=== PATIENT | female | born 2000 | race Caucasian/White ===

== ENCOUNTER 2020-12-08 01:23 | Emergency (ER) | payer OTHER ==
[~2020-12-08] VITALS: Ht 157.5 cm; Wt 78.9 kg
[2020-12-08 01:31] VITALS: BP 123/60
--- NOTE | 2020-12-08 01:31 | NUR ---
PATIENT 20 Y/O FEMALE BIB SELF FOR C/O R SIDED PELVIC PAIN X 5 DAYS. PATIENT STATES PAIN 10/10, INTERMITTENT SHARP PAIN. PATIENT STATES OTC MEDICATIONS PROVIDE PAIN RELIEF, BUT PAIN COMES BACK. PATIENT DENIES ANY PAINFUL URINATION OR ABNORMAL DISCHARGE. PATIENT DENIES ANY HX OF FIBROIDS/CYSTS. PATIENT DENIES ANY VAGINAL BLEEDING AT THIS TIME. SEE COMPLETE ASSESSMENT FOR FUTHER DETAILS. MEDHX: DENIES NKA
--- NOTE | 2020-12-08 01:36 | NUR ---
To ED bed 07
--- NOTE | 2020-12-08 01:42 | NUR ---
Dr. Buckley with pt for MSE
[2020-12-08] MEDS ORDERED: NACL 0.9% 1,000 ML IV SCH (01:50)
[2020-12-08] MEDS ORDERED: ONDANSETRON 4 MG/2 ML VIAL IVP ONE (01:50)
[2020-12-08] MEDS ORDERED: MORPHINE SULFATE 4 MG/ML SYR IVP ONE (01:50)
[2020-12-08 02:02] LABS: BASOPHILS # (AUTO) 0.1 K/uL (0.00-0.22); BASOPHILS % (AUTO) 0.4 % (0.0-2.0); EOSINOPHILS # (AUTO) 0.3 K/uL (0-0.4); EOSINOPHILS % (AUTO) 2.4 % (0.0-4.0); HEMATOCRIT 37.2 % (36-48); HEMOGLOBIN 12.3 g/dL (12.0-16.0); MEAN CORPUSCULAR HEMOGLOBIN 29 pg (27-31); MEAN CORPUSCULAR HGB CONC 33 g/dL (33-37); MEAN CORPUSCULAR VOLUME 87.7 fL (80-94); MONOCYTES % (AUTO) 7.3 % (1.7-9.3); NEUTROPHILS # (AUTO) 9.9 K/uL (1.8-7.7); NEUTROPHILS % (AUTO) 74.9 % (42.2-75.2); PLATELET COUNT (AUTO) 400 K/uL (140-450); RED BLOOD CELL COUNT(AUTO) 4.24 MIL/uL (4.20-5.40); RED CELL DISTRIBUTION WIDTH 13.7 % (11.6-13.7); WHITE BLOOD COUNT (AUTO) 13.2 K/uL (4.8-10.8)
--- NOTE | 2020-12-08 02:09 | NUR ---
PT REPORTS BEGINNING MENSTRUAL CYCLE AT THIS TIME.
--- NOTE | 2020-12-08 02:10 | NUR ---
URINE SAMPLE COLLECTED AND HAND GIVEN TO FREDDIE LOVE TECH.
[2020-12-08 02:12] LABS: ANION GAP 16.5 (8-16); CARBON DIOXIDE 27.4 mmol/L (21-32); CREATININE 0.9 mg/dL (0.6-1.3); POTASSIUM 3.9 mmol/L (3.5-5.1)
[2020-12-08 02:19] LABS: APPEARANCE,URINE CLOUDY (CLEAR); BILIRUBIN,URINE 1+ (NEGATIVE); BLOOD, URINE 3+ (NEGATIVE); COLOR,URINE YELLOW (YELLOW); LEUKOCYTE ESTERASE ,URINE NEGATIVE (NEGATIVE); NITRITE, URINE NEGATIVE (NEGATIVE); UGLUCOSE NEGATIVE (NEGATIVE)
[2020-12-08 02:23] LABS: ALBUMIN 3.9 g/dL (3.4-5.0); TOTAL BILIRUBIN 0.3 mg/dL (0.0-1.0)
--- NOTE | 2020-12-08 02:23 | NUR ---
PT TAKEN TO CT VIA W.C.
[2020-12-08 02:25] LABS: RBC,URINE TOO NUMEROUS TO COUN /HPF (0-5)
[2020-12-08 02:26] LABS: WBC,URINE 0-5 /HPF (0-5)
--- NOTE | 2020-12-08 02:34 | NUR ---
PT RETURNED FROM CT VIA W.C.
--- NOTE | 2020-12-08 03:10 | NUR ---
PT DENIES PAIN OR DISCOMFORT AT THIS TIME. PATIENT PROVIDED ADDITIONAL BLANKET AND REPOSITIONED FOR COMFORT. MOTHER REMAINS AT BEDSIDE.
--- NOTE | 2020-12-08 04:25 | NUR ---
ULTRASOUND AT BEDSIDE.
[2020-12-08] MEDS ORDERED: KETOROLAC 30 MG/ML VIAL IVP ONE (04:35)
[2020-12-08] MEDS ORDERED: cefTRIAXone 1,000 MG VIAL ONE (04:39)
[2020-12-08] MEDS ORDERED: ONDA-24 SL (04:47)
[2020-12-08] MEDS ORDERED: CEPH-588 PO (04:47)
[2020-12-08] MEDS ORDERED: NAPR-1003 PO (04:47)
--- NOTE | 2020-12-08 04:59 | NUR ---
ERMD AT BEDSIDE DISCUSSING RESULTS.
[2020-12-08 05:27] VITALS: BP 101/59
--- NOTE | 2020-12-08 05:27 | NUR ---
Patient discharged with v/s stable. Written and verbal after care instructions given and explained. Patient alert, oriented and verbalized understanding of instructions. Ambulatory with steady gait. All questions addressed prior to discharge. ID band removed. Patient advised to follow up with PMD. Rx of KEFLEX, NAPROXEN, ZOFRAN ODT given. Patient educated on indication of medication including possible reaction and side effects. Opportunity to ask questions provided and answered.
== END 2020-12-08 05:27 | disposition home or self-care (01) ==
LOC: MED 01:23
DX: N83.201 Unspecified ovarian cyst, right side (principal)
CPT/HCPCS: 36415; 74176; 76856; 80053; 81001; 84703; 85025; 87086; 96361; 96365; 96375; 99285; J0696; J1885; J2270; J2405; J7030

== ENCOUNTER 2021-10-02 21:50 | Emergency (ER) | payer OTHER ==
[~2021-10-02] VITALS: Ht 154.9 cm; Wt 84.4 kg
[~2021-10-02 21:50] MED LIST: CEPH-588 PO; NAPR-1003 PO; ONDA-188 SL
--- NOTE | 2021-10-02 22:11 | NUR ---
PATIENT TO LOBBY WITH URINE CUP FOR URINE COLLECTION
[2021-10-02 22:14] VITALS: BP 127/66
[2021-10-02] MEDS ORDERED: ONDANSETRON 4 MG ODT PO ONE (22:15)
[2021-10-02] MEDS ORDERED: ONDANSETRON 4 MG ODT ONE (23:43)
--- NOTE | 2021-10-03 01:24 | NUR ---
PT GIVEN BONIFACIO CRACKJOSE.
--- NOTE | 2021-10-03 01:26 | NUR ---
Per pt, has been taken Semaglutide prescribed by PCP.
[2021-10-03] MEDS ORDERED: KETOROLAC 60 MG/2 ML VIAL IM ONE (02:30)
[2021-10-03] MEDS ORDERED: ONDA8TAB87 PO (02:37)
[2021-10-03] MEDS ORDERED: IBUP-2213 PO (02:37)
[2021-10-03] MEDS ORDERED: LOPE-143 PO (02:37)
[2021-10-03] MEDS ORDERED: CIPR500T4 PO (02:37)
[2021-10-03 02:56] VITALS: BP 118/75
== END 2021-10-03 02:56 | disposition home or self-care (01) ==
LOC: MED 21:50
DX: R11.2 Nausea with vomiting, unspecified (principal); R19.7 Diarrhea, unspecified; R10.13 Epigastric pain; Z79.899 Other long term (current) drug therapy; Z79.1 Long term (current) use of non-steroidal anti-inflammatories (NSAID); Z79.2 Long term (current) use of antibiotics
CPT/HCPCS: 81002; 81025; 96372; 99283; J1885; Q0162

== ENCOUNTER 2023-03-10 19:12 | Emergency (ER) | payer OTHER ==
[~2023-03-10] VITALS: Ht 154.9 cm; Wt 81.6 kg
[~2023-03-10 19:12] MED LIST changes: +CIPR500T4 PO; +IBUP-2213 PO; +LOPE-143 PO; +ONDA8TAB87 PO
[2023-03-10 19:25] VITALS: BP 110/70; PULSE 80; RESP 17; TEMP 97.6; O2SAT 98
[2023-03-10] MEDS ORDERED: IBUPROFEN 600 MG TAB PO ONE (20:25)
[2023-03-10 21:20] LABS: APPEARANCE,URINE SL CLOUDY (CLEAR); BILIRUBIN,URINE NEGATIVE (NEGATIVE); BLOOD, URINE NEGATIVE (NEGATIVE); COLOR,URINE YELLOW (YELLOW); LEUKOCYTE ESTERASE ,URINE TRACE (NEGATIVE); NITRITE, URINE NEGATIVE (NEGATIVE); PROTEIN,URINE NEGATIVE (NEGATIVE); UGLUCOSE NEGATIVE (NEGATIVE); UROBILINOGEN,URINE 0.2 EU/dL (0.2 - 1)
[2023-03-10] MEDS ORDERED: IBUP-2213 PO (21:20)
[2023-03-10 21:28] LABS: BACTERIA,URINE 2+ /HPF (None Seen); MUCUS,URINE 1+ /LPF (None Seen); RBC,URINE 0-5 /HPF (0-5); SQUAMOUS EPITHELIAL CELL,UR 20-50 /LPF (0-3 (FEW)); TRICHOMONAS,URINE None Seen /HPF (None Seen); WBC,URINE 0-5 /HPF (0-5); YEAST,URINE None Seen /HPF (None Seen)
[2023-03-10 23:28] LABS: BASOPHILS # (AUTO) 0.1 K/uL (0.00-0.22); BASOPHILS % (AUTO) 0.8 % (0.0-2.0); EOSINOPHILS # (AUTO) 0.3 K/uL (0-0.4); EOSINOPHILS % (AUTO) 3.1 % (0.0-4.0); HEMATOCRIT 32.9 % (36-48); HEMOGLOBIN 10.9 g/dL (12.0-16.0); LYMPHOCYTES # (AUTO) 3.4 K/uL (2.5-16.5); MEAN CORPUSCULAR HEMOGLOBIN 28 pg (27-31); MEAN CORPUSCULAR HGB CONC 33 g/dL (33-37); MEAN CORPUSCULAR VOLUME 84.7 fL (80-94); MONOCYTES # (AUTO) 0.8 K/uL (0.8-1.0); MONOCYTES % (AUTO) 9.2 % (1.7-9.3); NEUTROPHILS % (AUTO) 46.9 % (42.2-75.2); PLATELET COUNT (AUTO) 407 K/uL (140-450); RED BLOOD CELL COUNT(AUTO) 3.88 MIL/uL (4.20-5.40); WHITE BLOOD COUNT (AUTO) 8.4 K/uL (4.8-10.8)
[2023-03-10 23:36] LABS: ANION GAP 15.4 (8-16); CALCIUM 8.6 mg/dL (8.5-10.1); CARBON DIOXIDE 24.2 mmol/L (21-32); CREATININE 0.9 mg/dL (0.6-1.3); POTASSIUM 3.6 mmol/L (3.5-5.1)
[2023-03-10] MEDS ORDERED: KETOROLAC 30 MG/ML VIAL ONE (23:36)
[2023-03-10] MEDS ORDERED: KETOROLAC 30 MG/ML VIAL IVP ONE (23:40)
[2023-03-11] MEDS ORDERED: ACET-10509 PO (02:16)
[2023-03-11 02:25] VITALS: BP 110/70; PULSE 80; RESP 17; TEMP 97.6; O2SAT 98
== END 2023-03-11 02:25 | disposition home or self-care (01) ==
LOC: MED 19:12
DX: N83.201 Unspecified ovarian cyst, right side (principal); R10.2 Pelvic and perineal pain; M54.50 Low back pain, unspecified; Z79.899 Other long term (current) drug therapy
CPT/HCPCS: 36415; 72193; 76830; 80048; 81001; 81025; 85025; 87086; 96374; 99285; J1885; Q0092

== ENCOUNTER 2023-06-01 11:39 | Emergency (ER) | payer OTHER ==
[~2023-06-01 11:39] MED LIST changes: +ACET-10509 PO
== END 2023-06-01 13:44 | disposition left against medical advice (07) ==
LOC: MED 11:39
DX: R35.0 Frequency of micturition (principal); Z53.21 Procedure and treatment not carried out due to patient leaving prior to being seen by health care provider

== ENCOUNTER 2024-01-06 17:30 | Emergency (ER) | payer OTHER ==
[~2024-01-06] VITALS: Ht 154.9 cm; Wt 87.5 kg
[2024-01-06 17:32] VITALS: BP 158/91; PULSE 100; RESP 17; TEMP 98.6; O2SAT 97
[2024-01-06 18:43] VITALS: O2SAT 97
[2024-01-06 18:44] VITALS: BP 152/88; PULSE 88; RESP 17; TEMP 98.6; O2SAT 97
[2024-01-06] MEDS: KETOROLAC 30 MG/ML VIAL IM ONE (18:59)
[2024-01-06] MEDS: DEXAMETHASONE 10 MG/ML VIAL IM ONE (18:59)
[2024-01-06 19:38] LABS: BILIRUBIN,URINE NEGATIVE (NEGATIVE); BLOOD, URINE 3+ (NEGATIVE); COLOR,URINE YELLOW (YELLOW); LEUKOCYTE ESTERASE ,URINE TRACE (NEGATIVE); NITRITE, URINE NEGATIVE (NEGATIVE); PH,URINE 6.5 (5.0-9.0); PROTEIN,URINE 1+ (NEGATIVE); UGLUCOSE NEGATIVE (NEGATIVE)
[2024-01-06 19:39] LABS: APPEARANCE,URINE SLIGHTLY HAZY (CLEAR)
[2024-01-06 19:41] LABS: BACTERIA,URINE 1+ /HPF (None Seen); MUCUS,URINE None Seen /LPF (None Seen); RBC,URINE 11-20 (MOD) /HPF (0-5); SQUAMOUS EPITHELIAL CELL,UR 4-10 (MOD) /LPF (0-3 (FEW)); WBC,URINE 0-5 /HPF (0-5)
[2024-01-06] MEDS ORDERED: CYCL-711 PO (19:46)
[2024-01-06] MEDS ORDERED: LID5T TP (19:46)
[2024-01-06] MEDS ORDERED: NAPR-337 PO (19:46)
== END 2024-01-06 19:52 | disposition home or self-care (01) ==
LOC: MED 17:30
DX: M62.830 Muscle spasm of back (principal); Z79.1 Long term (current) use of non-steroidal anti-inflammatories (NSAID); Z79.2 Long term (current) use of antibiotics; Z79.899 Other long term (current) drug therapy
CPT/HCPCS: 81001; 81025; 96372; 99284; J1100; J1885